=== PATIENT | female | born 1970 | race Caucasian/White ===

== ENCOUNTER 2019-04-12 18:45 | Emergency (ER) | payer MEDICARE, MEDICAID ==
[~2019-04-12] VITALS: Ht 147.3 cm; Wt 90.0 kg
[~2019-04-12 18:45] MED LIST: FLOMAX0.4 M1 PO; NO MEDS; TAM75CAP OR; UROXATRAL10 MG OR
[2019-04-12 19:41] LABS: HEMATOCRIT 43.9 % (37.0-47.0); HEMOGLOBIN 14.5 g/dl (12.0-16.0); IMMATURE GRANULOCYTES 0.6 % (0.0-5.0); MEAN CELL VOLUME 100.7 fL CALC (80.0-100.0); MEAN CORPUSCULAR HGB 33.3 pG CALC (26.0-32.0); NEUT# 3.86 thou/uL (2.00-7.15); RED BLOOD COUNT 4.36 mill/uL (4.20-5.60)
[2019-04-12 19:58] LABS: ALKALINE PHOSPHATASE 113 u/l (38-126); AMYLASE 62 u/l (30-110); ANION GAP 16 (6-22 (CALC)); BILIRUBIN, TOTAL 0.6 mg/dL (0.0-1.4); BUN 18 mg/dL (7-17); BUN/CREATININE RATIO 15 (12-20 (CALC)); CARBON DIOXIDE 26 mmol/l (22-30); CHLORIDE 103 mmol/l (95-108); CREATININE 1.2 mg/dL (0.5-1.0); GFR 48 ML/MIN (>=60 (CALC)); GFR FOR AFR.AMER. 58 ML/MIN (>=60 (CALC)); LIPASE 62 u/l (23-300); POTASSIUM 3.9 mmol/l (3.5-5.1); SGOT/AST 33 u/l (14-36); SODIUM 140 mmol/l (137-146); TOTAL PROTEIN 7.6 g/dL (6.3-8.2)
[2019-04-12 22:26] LABS: URINE BILIRUBIN - DIPSTICK NEGATIVE (NEGATIVE); URINE BLOOD DIPSTICK NEGATIVE (NEGATIVE); URINE COLOR YELLOW; URINE GLUCOSE - DIPSTICK NEGATIVE (NEGATIVE); URINE KETONE NEGATIVE (NEGATIVE); URINE LEUK ESTERASE NEGATIVE (NEGATIVE); URINE NITRITE - DIPSTICK NEGATIVE (Negative); URINE PH 5.5 (4.5-8.0); URINE PROTEIN - DIPSTICK NEGATIVE (NEG-TRACE); URINE UROBILINOGEN - DIPSTICK 0.2 E.U./dL (0.2)
[2019-04-13 01:10] VITALS: BP 110/60
== END 2019-04-13 01:15 ==
LOC: ED 18:45
PROVIDERS: Emergency Medicine
PROC: 0T9B70Z Drainage of Bladder with Drainage Device, Via Natural or Artificial Opening (ICD-10-PCS; principal; 2019-04-12)
DX: R33.9 Retention of urine, unspecified (principal); F03.90 Unspecified dementia, unspecified severity, without behavioral disturbance, psychotic disturbance, mood disturbance, and anxiety; R10.30 Lower abdominal pain, unspecified
CPT/HCPCS: S0164

== ENCOUNTER → 2019-12-20 | Day surgery (SDC) | payer MEDICARE, MEDICAID ==
[~2019-12-20] MED LIST changes: +BACTRIM DS1 TAB PO; +BETHANECHOL25 MG PO; +CEPHALEXIN500 MG PO; +CLOTRIMAZOLE/BETAME1 EX; +KETOCONAZOLE2 % EX; +VITAMIN D22000 UNIT PO
== END | disposition home or self-care (01) ==
PROC: 0DJD8ZZ Inspection of Lower Intestinal Tract, Via Natural or Artificial Opening Endoscopic (ICD-10-PCS; principal; 2019-12-20)
DX: Z12.11 Encounter for screening for malignant neoplasm of colon (principal); K64.8 Other hemorrhoids; Q90.9 Down syndrome, unspecified

== ENCOUNTER 2020-01-09 | Emergency (ER) | payer MEDICARE, MEDICAID ==
[~2020-01-09] MED LIST changes: -CLOTRIMAZOLE/BETAME1 EX; -KETOCONAZOLE2 % EX; -VITAMIN D22000 UNIT PO
[2020-01-09] MEDS ORDERED: VITAMIN D22000 UNIT PO (10:41)
[2020-01-09] MEDS ORDERED: KETOCONAZOLE2 % EX (10:42)
[2020-01-09] MEDS ORDERED: CLOTRIMAZOLE/BETAME1 EX (10:43)
== END 2020-01-09 12:30 | disposition home or self-care (01) ==
PROC: 0QSFXZZ Reposition Left Patella, External Approach (ICD-10-PCS; principal; 2020-01-09)
DX: M22.02 Recurrent dislocation of patella, left knee (principal); F79 Unspecified intellectual disabilities
CPT/HCPCS: J2060; L1830

== ENCOUNTER 2022-07-04 17:23 | Observation (INO) | payer MEDICARE, MEDICAID ==
[~2022-07-04] VITALS: Ht 139.7 cm; Wt 50.0 kg
[2022-07-04] VITALS (13 sets, daily range): BP systolic 99–134; BP diastolic 64–108
[~2022-07-04 17:23] MED LIST changes: +CLOTRIMAZOLE/BETAME1 EX; +KETOCONAZOLE2 % EX; +VITAMIN D22000 UNIT PO
--- NOTE | 2022-07-04 17:25 | NUR ---
PT TO ROOM IN RECLINER CHAIR FROM PENITENTI[facility] ACCOMPANIED BY CAREGIVERS X2. PT QUIET. DOES NOT RESPOND TO QUESTIONS. PT WITH OCCASIONAL VOCALIZATIONS. PER CAREGIVERS, PT DOES NOT NORMALLY SPEAK OR WALK. PT SOMETIMES RESPONDS TO YES AND NO QUESTIONS PER CAREGIVERS. PT WITH DECREASED APPETITE AND SEEMS WEAK TODAY PER CAREGIVERS AT BEDSIDE.
[2022-07-04 17:54] LABS: HEMATOCRIT 44.8 % (37.0-47.0); HEMOGLOBIN 14.4 g/dl (12.0-16.0); IMMATURE GRANULOCYTES 0.6 % (0.0-5.0); MEAN CELL VOLUME 103.5 fL CALC (80.0-100.0); MEAN CORPUSCULAR HGB 33.3 pG CALC (26.0-32.0); MEAN CORPUSCULAR HGB CONC 32.1 g/dL CAL (32.0-36.0); NEUT# 5.42 thou/uL (2.00-7.15); RED BLOOD COUNT 4.33 mill/uL (4.20-5.60); RED CELL DISTRI WIDTH 13.7 % (11.5-15.5)
[2022-07-04 17:55] LABS: URINE BILIRUBIN - DIPSTICK NEGATIVE (NEGATIVE); URINE BLOOD DIPSTICK TRACE-LYSED (NEGATIVE); URINE COLOR YELLOW; URINE GLUCOSE - DIPSTICK NEGATIVE (NEGATIVE); URINE KETONE TRACE mg/dL (NEGATIVE); URINE PROTEIN - DIPSTICK TRACE mg/dL (NEG-TRACE); URINE SPECIFIC GRAVITY >=1.030; URINE UROBILINOGEN - DIPSTICK 0.2 E.U./dL (0.2)
[2022-07-04 17:56] LABS: URINE BACTERIA MANY hpf; URINE LEUK ESTERASE SMALL (NEGATIVE); URINE NITRITE - DIPSTICK POSITIVE (Negative); URINE SQUAMOUS EPITHELIAL CELL MANY EPI/hpf (0-FEW); URINE TRANSITIONAL EPI. CELLS FEW hpf
[2022-07-04 18:08] LABS: ALBUMIN 3.9 g/dL (3.2-5.0); ALKALINE PHOSPHATASE 116 u/l (38-126); ANION GAP 13 (6-22 (CALC)); BILIRUBIN, TOTAL 0.6 mg/dL (0.0-1.4); BUN 23 mg/dL (7-17); BUN/CREATININE RATIO 27 (12-20 (CALC)); CARBON DIOXIDE 23 mmol/l (22-30); CHLORIDE 112 mmol/l (95-108); CREATININE 0.9 mg/dL (0.5-1.0); GFR FOR AFR.AMER. > 60 ML/MIN (>=60 (CALC)); GFR OTHER RACES > 60 ML/MIN (>=60 (CALC)); LIPASE 91 u/l (23-300); POTASSIUM 4.3 mmol/l (3.5-5.1); SGOT/AST 26 u/l (14-36); SODIUM 143 mmol/l (137-146); TOTAL PROTEIN 8.2 g/dL (6.3-8.2)
--- NOTE | 2022-07-04 19:22 | NUR ---
W/P/D SKIN NO COUGH NO S/S OF DYSPNEA.IVF INFUSING ORDERED.FAMILY AT BEDSIDE INFORMED OR LAB RESULTS ON REQUEST.
--- NOTE | 2022-07-04 21:43 | NUR ---
PT ASSIGNED TO ROOM 273
--- NOTE | 2022-07-04 22:05 | NUR ---
PT REPORT TO NURSE GABBY
--- NOTE | 2022-07-04 22:09 | NUR ---
W/P/D SKIN BRIGHT EYES NO FOLLWOING OF MY MOVEMENTS OF VERBAL COGNITION OF CONVERSATIONS OR SIMPLE COMMANDS STATUS IS STATUS QUO SINCE I ACCEPTED HER CARE WITHOUT CHANGE
--- NOTE | 2022-07-04 22:09 | NUR ---
TRANSPORTED TO [facility] 273 VIA STRETCHER ON TELE AND O2 2L/PENSIONHOLDER INFORMATION CLERK IN IMPROVED STABLE CONDITION WITH PT REPORT UPDATE AT BEDSIDE WITH NURSE ARY
--- NOTE | 2022-07-04 22:10 | NUR ---
PT ARRIVED TO MS2 VIA STRETCHER ACCOMPANIED BY ER NURSE, PT NONVERBAL ONLY GROANING NOTED. NO SIGNS OF DISTRESS NOTED, RESP EVEN AND UNLABORED. PT ASSISTED TO STRETCHER X2 ASSIST. NOTED SCRATCHES TO EXTREMITIES, SMALL SKIN ABRASION TO L INNER BACK OF THIGH, POSSIBLY FROM PERSONAL CORI LIFT PAD. PAD REMOVED AND PLACED IN CLOSET WITH SHIRT AND PAIR OF SOCKS, NO OTHER BELONGINGS NOTED. TEDS APPLIED, MOUTH CARE PROVIDED, ADMISSION ASSESSMENT COMPLETED, UNABLE TO OBTAIN ALL INFORMATION DUE TO PT BEING NON VERBAL AND COGNITIVE IMPAIRMENT. BED ALARM FOR SAFETY, CALL LIGHT IN REACH,CONTINUE TO MONITOR.
[2022-07-05] VITALS (8 sets, daily range): BP systolic 78–169; BP diastolic 51–126
--- NOTE | 2022-07-05 00:19 | NUR ---
PT RESTING IN BED, IV FLUIDS INITIATED, NO SIGNS OF DISTRESS NOTED, RESP EVEN AND UNLABORED. BED ALARM FOR SAFETY, CALL LIGHT IN REACH,CONTINUE TO MONITOR.
--- NOTE | 2022-07-05 04:00 | NUR ---
PT RESTING IN BED WITH EYES CLOSED, NO SIGNS OF DISTRESS NOTED, RESP EVEN AND UNLABORED. CALL LIGHT IN REACH, BED ALARM FOR SAFETY, CONTINUE TO MONITOR.
--- NOTE | 2022-07-05 08:55 | NUR ---
pt laying in bed, attempt made to awaken to complete assessment. pt non verbal at this time. no facial expression of pain. clear breath sounds upon auscultation. active bowel sounds x4 quadrants. iv healthy and patent with ivf infusing per mar orders. spoke with alfred at [facility] home, pt able to take medications with apple sauce, is a total care, uses wc. has been weak and decreased in appetite and fluid intake. assessment completed. discussed poc, reinforcement needed. call light within reach, bed alarm in place for safety.
--- NOTE | 2022-07-05 11:40 | NUR ---
pt laying in bed sleeping. respirations even and unlabored. no distress noted, no signs of pain. call light within reach.
--- NOTE | 2022-07-05 16:00 | NUR ---
pt laying in bed. no distress noted. no physical signs of pain noted. call light within reach. bed alarm in plce for safety
--- NOTE | 2022-07-05 19:48 | NUR ---
INCONTINENT CARE PROVIDE AND ORAL CARE PROVIDED AT THIS TIME.
--- NOTE | 2022-07-05 20:00 | NUR ---
PATIENT NON VERBAL, HAS ONGOING IV NS 100CC/HR INFUSING WELL ON LFA, REMAINS ON TELEMETRY SR 72, ACTIVE BOWEL SOUNDS, UNABLE TO STATE LAST BM, PATIENT TURNED AND REPOSITIONED, DUE ANTIBIOTC GIVEN.
[2022-07-06] VITALS (7 sets, daily range): BP systolic 105–145; BP diastolic 71–91
--- NOTE | 2022-07-06 | NUR ---
PATIENT ASLEEP AT THIS TIME, BREATHING EVEN UNLABORED, CALL LIGHT IN REACH.
--- NOTE | 2022-07-06 04:47 | NUR ---
INCONTINENT CARE PROVIDED, TELEMETRY IN PLACED SR 74, BREATHING UNLABORED CALL LIGHT IN REACH.
[2022-07-06 05:51] LABS: ALKALINE PHOSPHATASE 98 u/l (38-126); ANION GAP 11 (6-22 (CALC)); BILIRUBIN, TOTAL 0.6 mg/dL (0.0-1.4); BUN 15 mg/dL (7-17); BUN/CREATININE RATIO 20 (12-20 (CALC)); CARBON DIOXIDE 23 mmol/l (22-30); CHLORIDE 111 mmol/l (95-108); CREATININE 0.7 mg/dL (0.5-1.0); GFR FOR AFR.AMER. > 60 ML/MIN (>=60 (CALC)); GFR OTHER RACES > 60 ML/MIN (>=60 (CALC)); MAGNESIUM 1.9 mg/dL (1.6-2.3); POTASSIUM 3.9 mmol/l (3.5-5.1); SGOT/AST 26 u/l (14-36); SODIUM 142 mmol/l (137-146)
[2022-07-06 06:10] LABS: ALBUMIN 3.1 g/dL (3.2-5.0); TOTAL PROTEIN 6.5 g/dL (6.3-8.2)
--- NOTE | 2022-07-06 07:44 | NUR ---
SHIFT CHANGE REPORT, PT AWAKE AND ALERT, ABLE TO SAY FEW WORDS BUT NO SENTENCES, MAKES NON-DISCOMFORT GROANS AND MOANS, WILL SAY "NO" IF SHE IS DISPLEASED WITH ANY ACTIVITY STAFF IS PERFORMING. TELE MONITOR IN PLACE, IVF INFUSING, CALL AMBROSE IN REACH AND BED LOCKEN IN LOWEST POSITION WITH ALARM ON.
--- NOTE | 2022-07-06 12:12 | NUR ---
CONDITION REMAINS STABLE WITH NO NEW DEVELOPMENTS, FED MEAL BY STAFF, WILL CONTINUE TO MONITOR.
[2022-07-06] MEDS ORDERED: KEFLEX500 MG PO (12:53)
--- NOTE | 2022-07-06 15:28 | NUR ---
Discharge instructions given. Patient verbalizes understanding of same. Discharged in stable condition via Wheelchair to [facility] with *Other. All belongings sent with pt.
== END 2022-07-06 15:25 | disposition short-term general hospital (02) ==
LOC: ED 17:23 → ED-I 18:00 → ED 18:00 → ED-I 20:17 → ED 20:28 → MS2 20:29
PROVIDERS: Family Medicine; Nurse Practitioner; ADMIT Internal Medicine; ATTEND Internal Medicine
DX: N39.0 Urinary tract infection, site not specified (principal); Q90.9 Down syndrome, unspecified; S30.810A Abrasion of lower back and pelvis, initial encounter; F03.90 Unspecified dementia, unspecified severity, without behavioral disturbance, psychotic disturbance, mood disturbance, and anxiety; B96.1 Klebsiella pneumoniae [K. pneumoniae] as the cause of diseases classified elsewhere; X58.XXXA Exposure to other specified factors, initial encounter; Z87.440 Personal history of urinary (tract) infections; Z20.822 Contact with and (suspected) exposure to COVID-19
CPT/HCPCS: G0378; J1650